=== PATIENT | male | born 1950 | race Caucasian/White ===

== ENCOUNTER 2016-12-30 13:33 | Emergency (ER) | payer OTHER, MEDICARE ==
[~2016-12-30] VITALS: Ht 175.3 cm; Wt 62.5 kg
[~2016-12-30 13:33] MED LIST: ASPI81TA28 PO; LISI20TA3 PO; METO25TA3 PO; OMEG10007 PO; SIMV10TA2 PO
[2016-12-30 13:36] VITALS: Ht 175.3 cm; Wt 62.5 kg
[2016-12-30] MEDS ORDERED: DOXY100C2 PO (13:54)
[2016-12-30] MEDS ORDERED: ZCR10 PO (13:59)
[2016-12-30] MEDS ORDERED: LISI-725 PO (13:59)
[2016-12-30] MEDS ORDERED: ASPI81TA28 PO (13:59)
[2016-12-30] MEDS ORDERED: METO50TA7 PO (13:59)
[2016-12-30 14:17] VITALS: BP 102/60; PULSE 58; TEMP 36.7; O2SAT 98
--- NOTE | 2016-12-30 17:55 | EMERGENCY ROOM VISIT NOTE ---
History Report prepared by Shey: Tina Olivas Under the Supervision of: Dr. Horacio Birmingham M.D. First contact with patient: 13:40 Chief Complaint: KNEEPAIN Stated Complaint: SORE LEFT KNEE/ELBOW, RIGHT WRIST History of Present Illness The patient is a 66 year old male who presents to the Emergency Room with complaints of worsening joint pain that started yesterday. The patient states that 4 days ago he developed generalized body aches and a dull headache. He felt feverish with hot and cold flashes. His temperature yesterday was 99. He saw his PCP yesterday for these symptoms. The patient had blood work done at that time. He was tested for Lyme Disease and that test is still pending. He was told that his ESR was not elevated. After his appointment yesterday the patient developed joint pain in his left knee, left elbow, and right wrist. He describes his pain as achy and rates it as a 6/10 in severity. His joint pain worsened throughout the night. Movement exacerbates his pain. He took aspirin and that helped to alleviate some of his pain. The patient called his PCP today with his worsening symptoms and was advised to come to the ED for further evaluation. The patient is unsure if he had any recent tick bites. He has not removed any ticks recently. He denies any rashes. 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 Source of History: patient Onset: yesterday Position: other (generalized) Symptom Intensity: 6/10 Quality: ache Timing: worsening Modifying Factors (Worsening): movement Modifying Factors (Relieving): other (aspirin) Associated Symptoms: + fevers, + headache, No rash Note: Pt denies recent bites. Review of Systems See HPI for pertinent positives & negatives. A total of 10 systems reviewed and were otherwise negative. Past Medical & Surgical Medical Problems: (1) Aortic valve disorder (2) Prostate cancer Family History No pertinent history stated. Social History Smoking Status: Never Smoker Marital Status: Housing Status: lives with significant other Current/Historical Medications Scheduled Aspirin (Aspirin Ec), 81 MG PO DAILY Doxycycline Hyclate (Vibramycin), 100 MG PO BID Lisinopril (Zestril), 20 MG PO DAILY Metoprolol Succ (Toprol Xl) (Toprol-Xl), 50 MG PO DAILY Simvastatin (Simvastatin), 10 MG PO DAILY Allergies Coded Allergies: No Known Allergies (Unverified , 05/13/16) Physical Exam Vital Signs Date Time Temp Pulse Resp B/P (MAP) Pulse Ox O2 Delivery O2 Flow Rate FiO2 12/30/16 14:17 36.7 58 18 102/60 98 12/30/16 13:36 36.7 60 20 119/71 100 Room Air Physical Exam Constitutional: Vital signs reviewed. Eyes: Pupils are equal round reactive to light. Conjunctiva are noninjected. ENT: Pharynx is clear without erythema or exudate. Mucous membranes are moist. Neck supple without meningeal signs. Respiratory: Clear to auscultation bilaterally. Breath sounds are equal bilaterally. Cardiovascular: Regular rate and rhythm. No rubs or gallops. GI: Soft, nondistended and nontender. Bowel sounds are present. Musculoskeletal: No swelling or tenderness to the left elbow, left knee, or right wrist. No peripheral edema. Integumentary: No cyanosis. No rash. Neurological: The patient is awake and alert. No focal deficits. Psychiatric: Normal affect. Medical Decision & Procedures ED Course 1340: The patient was evaluated in room B3B. A complete history and physical exam was performed. 1412: I reassessed the patient at this time. He is feeling better and resting comfortably. I discussed the results and treatment plan with the patient. We discussed his blood work from yesterday. His platelet count was 135 yesterday. I answered all pertaining questions that he had. He expressed understanding and verbalized agreement. The patient will be discharged home. Medical Decision This is a 66-year-old male who presents with arthralgia, myalgias and headache. Differential diagnosis includes Lyme disease, arthritis, rheumatologic disorder. I did perform a limited focused review of portions of the patient's old chart on the electronic medical record. The patient has had no recent pertinent visits to this hospital. I did obtain blood tests from the [facility] system. He did have a white count of 3.1. His platelet count was 135. Lyme testing is still pending. I did discuss the test results with the patient and his . I did recommend treatment for Lyme given his symptoms. He was in agreement with this. He was discharged with a prescription for 3 weeks of doxycycline. He will follow up with his doctor. Medication Reconcilliation Current Medication List: was personally reviewed by me Blood Pressure Screening Patient's blood pressure: Normal blood pressure Impression Primary Impression: Lyme disease Additional Impression: Thrombocytopenia Scribe Attestation The scribe's documentation has been prepared under my direct and personally reviewed by me in its entirety. I confirm that the note above accurately reflects all work, treatment, procedures, and medical decision making performed by me. Departure Information Dispostion Home / Self-Care Prescriptions Doxycycline Hyclate (VIBRAMYCIN) 100 Mg Cap 100 MG PO BID for 21 Days, #42 CAP Prov: Horacio Birmingham M.D. 12/30/16 Referrals No Doctor, Assigned (PCP) Forms HOME CARE DOCUMENTATION FORM, IMPORTANT VISIT INFORMATION Patient Instructions ED Lyme Disease, [facility] Additional Instructions You have been examined and treated today on an emergency basis only. This is not a substitute for, or an effort to provide, complete comprehensive medical care. It is impossible to recognize and treat all injuries or illnesses in a single emergency department visit. It is therefore important that you follow up closely with your physician. Call as soon as possible for an appointment. Return for worsening symptoms or if you develop high fever, vomiting, swelling or redness to your joints or any other concerning symptoms. Problem Qualifiers
== END 2016-12-30 14:19 | disposition home or self-care (01) ==
LOC: C.EDB 13:34
DX: A69.20 Lyme disease, unspecified (principal); D69.6 Thrombocytopenia, unspecified; I35.8 Other nonrheumatic aortic valve disorders; Z85.46 Personal history of malignant neoplasm of prostate; Z79.82 Long term (current) use of aspirin; Z79.899 Other long term (current) drug therapy